=== PATIENT | female | born 1960 | race Hispanic/Latino ===

== ENCOUNTER 2019-02-14 14:43 | Outpatient (CLI) | payer OTHER ==
--- NOTE | 2019-02-14 15:30 | XRay Report ---
LUMBAR SPINE HISTORY: Pain. Disability exam. COMPARISON: None. TECHNIQUE: 3 view(s) of the lumbar spine obtained. FINDINGS: Vertebrae: Normal alignment. No fracture or acute abnormality. Disc Spaces:Mild disc space narrowing at L1-2 with an anterior osteophyte and partial calcification o f the annulus. The rest of the disc spaces are normal. Facet Joints:Multilevel facet joint sclerosis. Additional findings: Aortic calcifications.. IMPRESSION: 1. Mild lumbar degenerative disc disease and facet joint arthropathy.. Signer Name: Casey Cervantes MD Signed: 02/14/2019 3:25 PM Workstation Name: [id number]
== END 2019-02-14 14:44 | disposition home or self-care (01) ==
LOC: XRAY 14:43
PROVIDERS: ATTEND Internal Medicine
DX: M51.37 Other intervertebral disc degeneration, lumbosacral region (principal); Z02.71 Encounter for disability determination
CPT/HCPCS: 72100